=== PATIENT | female | born 1950 | race African-American/Black ===

== ENCOUNTER 2019-08-16 09:58 | Emergency (ER) | payer MEDICARE ==
[~2019-08-16] VITALS: Ht 172.7 cm; Wt 69.0 kg
[2019-08-16] MEDS ORDERED: AMOXICILLIN 500 MG CAPSULE PO ONE (12:15)
[2019-08-16] MEDS ORDERED: IBUPROFEN 600MG TABLET PO ONE (12:15)
[2019-08-16] MEDS ORDERED: CLONIDINE 0.2MG TABLET PO ONE (12:15)
[2019-08-16 14:20] VITALS: BP 145/103
== END 2019-08-16 14:38 | disposition home or self-care (01) ==
LOC: ER 09:58
DX: I10 Essential (primary) hypertension (principal); R68.84 Jaw pain; K02.9 Dental caries, unspecified
CPT/HCPCS: 99284